=== PATIENT | female | born 1990 | race Caucasian/White ===

== ENCOUNTER 2016-12-12 18:50 | Emergency (ER) | payer SELFPAY ==
[~2016-12-12] VITALS: Ht 154.9 cm; Wt 55.0 kg
[2016-12-12 18:51] VITALS: BP 113/70; PULSE 94; RESP 12; TEMP 98.7; O2SAT 99
--- NOTE | 2016-12-12 20:54 | PD ---
HPI Chief Complaint: Cold / Flu Symptoms Time Seen by Provider: 20:53 Travel History International Travel<30 days: No Contact w/Intl Traveler<30days: No Traveled to known affect area: No History of Present Illness HPI 26-year-old female presents to emergency department for evaluation. Patient states her entire family has had the flu and she does not want to get it. Patient states she feels like she may be starting to get it because she has had a "twinge" in her throat and an occasional cough. Denies any fever or chills. No nausea or vomiting. No diarrhea. She has no other symptoms to report at this time. [facility] Past Medical History Anxiety: Yes Depression: Yes Diminished Hearing: No Gastrointestinal Disorders: Yes GERD: Yes Psychiatric: Yes Immunizations Current: Yes LMP: 4-8-17 : 2 Para: 0 Miscarriage: 1 : 1 Social History Alcohol Use: No Tobacco Use: Yes Substance Use: No (Denies any use; either prescription only or experimentation per patient.) Allergies-Medications (Allergen,Severity, Reaction): Coded Allergies: *MDRO Multi-Drug Resistant Organism (Verified Allergy, Unknown, 12/03/15) MRSA 07/2013 Reported Meds & Prescriptions Reported Meds & Active Scripts Active No Active Prescriptions or Reported Medications Review of Systems Except as stated in HPI: all other systems reviewed are Neg Physical Exam Narrative GENERAL: Well-nourished, well-developed female patient in no acute distress SKIN: Focused skin assessment warm/dry. HEAD: Normocephalic. EYES: No scleral icterus. No injection or drainage. NECK: Supple, trachea midline. No JVD or lymphadenopathy. CARDIOVASCULAR: Regular rate and rhythm without murmurs, gallops, or rubs. RESPIRATORY: Breath sounds equal bilaterally. No accessory muscle use. GASTROINTESTINAL: Abdomen soft, non-tender, nondistended. MUSCULOSKELETAL: No cyanosis, or edema. BACK: Nontender without obvious deformity. No CVA tenderness. Data Data Last Documented VS Vital Signs Date Time Temp Pulse Resp B/P Pulse Ox O2 Delivery O2 Flow Rate FiO2 12/12/16 19:16 16 12/12/16 18:51 98.7 94 113/70 99 Orders Influenzae A/B Antigen (12/12/16 19:17) MDM Medical Decision Making Medical Screen Exam Complete: Yes Emergency Medical Condition: Yes Medical Record Reviewed: Yes Differential Diagnosis Normal examination versus influenza versus common cold versus allergies versus pharyngitis Narrative Course 26-year-old female presents to emergency department for evaluation. Patient states that this is more precautionary because she has been exposed to the flu this week by several family members. She overall appears well. She is afebrile and vital signs are stable patient's influenza screen is obtained. She is discharged home at this time. She agrees to return immediately with any acute worsening of symptoms. Diagnosis Primary Impression: Exposure to influenza Additional Impression: Normal physical exam Referrals: Primary Care Physician Departure Forms: Tests/Procedures, Work Release Enter return to work date: December 16, 2016 Additional Instructions: Frequent handwashing Return to ED with acute worsening of symptoms Med/Other Pt SpecificInfo: No Meds Exist/No RX given Scripts No Active Prescriptions or Reported Meds Disposition: 01 DISCHARGE HOME Condition: Stable Dea Concepcion December 12, 2016 20:54
== END 2016-12-12 21:36 | disposition home or self-care (01) ==
LOC: NEPD 18:50
DX: Z20.828 Contact with and (suspected) exposure to other viral communicable diseases (principal); Z72.0 Tobacco use
CPT/HCPCS: 87804; 99283

== ENCOUNTER 2017-07-28 20:52 | Emergency (ER) | payer SELFPAY ==
[~2017-07-28] VITALS: Ht 154.9 cm; Wt 60.0 kg
[2017-07-28 20:54] VITALS: BP 118/69; PULSE 75; RESP 16; TEMP 98.2; O2SAT 100
--- NOTE | 2017-07-28 21:16 | PD ---
HPI Chief Complaint: Musculoskeletal Complaint Time Seen by Provider: 21:08 Travel History International Travel<30 days: No Contact w/Intl Traveler<30days: No Traveled to known affect area: No History of Present Illness HPI 27-year-old female here for evaluation of left fourth finger injury that occurred 4 days ago. She states that her fianc was cracking her finger knuckles, , flexing the fourth finger at the PIP joint when the injury occurred. She applied her own splint, however she has had persistent pain. She is unable to fully extend the distal finger. She reports that sensation is there, however feels as though her finger is asleep. No other injuries. Pain is moderate, constant, worse with movements and palpation. She is right-hand dominant. PFSH Past Medical History Anxiety: Yes Depression: Yes Diminished Hearing: No Gastrointestinal Disorders: Yes GERD: Yes Psychiatric: Yes Immunizations Current: Yes ?: Unknown LMP: 07/15/17 : 2 Para: 0 Miscarriage: 1 : 1 Social History Alcohol Use: No Tobacco Use: Yes Substance Use: No (Denies any use; either prescription only or experimentation per patient.) Allergies-Medications (Allergen,Severity, Reaction): Coded Allergies: *MDRO Multi-Drug Resistant Organism (Verified Allergy, Unknown, 07/28/17) MRSA 07/2013 Reported Meds & Prescriptions Reported Meds & Active Scripts Active No Active Prescriptions or Reported Medications Review of Systems Except as stated in HPI: all other systems reviewed are Neg Physical Exam Narrative GENERAL: Well-developed, well-nourished, comfortable, no apparent distress. SKIN: Focused skin assessment warm/dry. CARDIOVASCULAR: Regular rate and rhythm. Normal capillary refill in left hand and left fingers. RESPIRATORY: No accessory muscle use. MUSCULOSKELETAL: Left fourth finger with mallet deformity with inability to extend the DIP joint. FDS and FDP appear intact with normal range of motion flexion in the left fourth finger. Normal capillary refill in the left fourth finger. NEUROLOGICAL: Awake and alert. No obvious cranial nerve deficits. Motor grossly within normal limits. Normal speech. PSYCHIATRIC: Appropriate mood and affect; insight and judgment normal. Data Data Last Documented VS Vital Signs Date Time Temp Pulse Resp B/P (MAP) Pulse Ox O2 Delivery O2 Flow Rate FiO2 07/28/17 20:54 98.2 75 16 118/69 (85) 100 Orders Orders Finger ([id number]) (1/2/18 ) Mandatory Outpatient Referral (07/28/17 21:54) MDM Medical Decision Making Medical Screen Exam Complete: Yes Emergency Medical Condition: Yes Differential Diagnosis Mallet finger, extensor tendon injury, fracture, contusion, dislocation Narrative Course Left fourth finger x-ray shows no fracture with soft tissue swelling. The patient has a mallet finger of her left fourth finger. FDS and FDP are intact. She is unable to fully extend the finger at the DIP joint. She was splinted in extension and advised to follow-up with a hand surgeon this week. Diagnosis Primary Impression: Mallet finger of left hand Referrals: González Linn III, MD 3 days Hand Surgeon Charlene Ravi MD 3 days Hand Surgeon Additional Instructions: Follow-up with hand surgeon Dr. Linn or hand surgeon Dr. Ravi or a hand surgeon of your choice this week. Do not remove the splint from your finger. Return to the emergency department for worsening symptoms or any other concerns. Scripts No Active Prescriptions or Reported Meds Disposition: 01 DISCHARGE HOME Condition: Stable Dinesh De Souza MD Jul 28, 2017 21:16
--- NOTE | 2017-07-28 21:38 | RADRPT ---
EXAM DATE/TIME: 07/28/2017 21:24 [facility] COMPARISON: No previous studies available for comparison. INDICATIONS : Left ring finger swelling after jamming it 5 days ago. MEDICAL HISTORY : None. SURGICAL HISTORY : None. ENCOUNTER: Initial ACUITY: 4 - 6 days PAIN SCORE: 4/10 LOCATION: Left 4th digit. FINDINGS: Examination of the fourth digit of the left hand demonstrates no evidence of fracture or dislocation. No radiopaque foreign bodies are seen. Soft tissue swelling. CONCLUSION: Soft tissue swelling without definite fracture. Tomy Ashraf MD on July 28, 2017 at 21:34 Board Certified Radiologist. This report was verified electronically.
== END 2017-07-28 22:00 | disposition home or self-care (01) ==
LOC: PHEFT 20:52
DX: M20.012 Mallet finger of left finger(s) (principal); X50.1XXA Overexertion from prolonged static or awkward postures, initial encounter; Z72.0 Tobacco use
CPT/HCPCS: 73140; 99283

== ENCOUNTER 2017-12-17 18:21 | Emergency (ER) | payer MEDICAID ==
[2017-12-17] MEDS ORDERED: ONDANSETRON ODT 4 MG TAB PO PRN (19:30)
--- NOTE | 2017-12-17 19:38 | PD ---
HPI Chief Complaint n/v Date Seen: December 17, 2017 Time Seen: 19:34 Travel History International Travel<30 Days: No Contact w/Intl Traveler<30Days: No Known Affected Area: No History of Present Illness HPI pt. is a 27 y/o @ 18 2/7 weeks present w/c/o n/v. pt. states over the day has had n/v so much that she is unable to keep food down. pt. denies fever/ chills. nl bm. +FM, no lof/vb. has some low abdominal cramping. Weeks Gestation: 18 Para: 0 : 3 History Past Medical History Medical History: Denies Significant Hx Obstetric History Obstetric History , sab x 2 Family History Family History: Negative Social History Alcohol Use: No Tobacco Use: Yes Substance Abuse: No Allergies-Medications (Allergen,Severity, Reaction): Coded Allergies: *MDRO Multi-Drug Resistant Organism (Verified Allergy, Unknown, 07/28/17) MRSA 07/2013 Home Meds No Active Prescriptions or Reported Meds Review of Systems Except as stated in HPI: all other systems reviewed are Neg Physical Exam Narrative GENERAL: Well-nourished, well-developed patient. SKIN: Warm and dry. HEAD: Normocephalic and atraumatic. EYES: No scleral icterus. No injection or drainage. ENT: No nasal drainage noted. Mucous membranes pink. Airway patent. NECK: Supple, trachea midline. No JVD. CARDIOVASCULAR: Regular rate and rhythm without murmurs, gallops, or rubs. RESPIRATORY: Breath sounds equal bilaterally. No accessory muscle use. BREASTS: Bilateral exam showed no masses , no retractions, no nipple discharge. ABDOMEN/GI: Abdomen soft, non-tender, bowel sounds present, no rebound, no guarding Gravid GENITOURINARY: Uterine Contractions: - FHT's: + FHT EXTREMITIES: No cyanosis or edema. BACK: Nontender without obvious deformity. No CVA tenderness. NEUROLOGICAL: Awake and alert. Motor and sensory grossly within normal limits. Five out of 5 muscle strength in all muscle groups. Normal speech. Data Data Vital Signs Reviewed: Yes Orders Orders Basic Metabolic Panel (Bmp) (12/17/17 19:13) Complete Blood Count With Diff (12/17/17 19:13) Urinalysis - C+S If Indicated (12/17/17 19:13) Ondansetron Odt (Zofran Odt) (12/17/17 19:30) MDM Medical Record Reviewed: Yes Plan pt. w/ gastritis vs hyperemesis. condition d/w pt. pt. to be d/c to home. given precautions for return. all ? answered. f/u as sched. Diagnosis Diagnosis: Primary Impression: Hyperemesis affecting , antepartum Additional Impression: 18 weeks gestation of Disposition: DISCHARGE HOME Scripts No Active Prescriptions or Reported Meds Patient Instructions: General Instructions Additional Instructions: Drink 8-10 large glasses of water per day as tolerated. Return to OB Triage with concerns of decreased movement, vaginal bleeding, or sudden gush of fluids. Departure Forms: Tests/Procedures Matt Boone Jr., MD December 17, 2017 19:38
[2017-12-17 19:42] LABS: AUTOMATED NEUTROPHIL # 6.5 TH/MM3 (1.8-7.7); BASOPHIL % 0.4 % (0.0-2.0); EOSINOPHIL # 0.1 TH/MM3 (0-0.4); HEMATOCRIT 29.6 % (35.0-46.0); HEMOGLOBIN 10.4 GM/DL (11.6-15.3); LYMPH % 21.1 % (9.0-44.0); MEAN CELL VOLUME 88.6 FL (80.0-100.0); MEAN CORPUSCULAR HEMOGLOBIN 31.1 PG (27.0-34.0); MEAN CORPUSCULAR HGB CONC 35.1 % (32.0-36.0); MEAN PLATELET VOLUME 8.7 FL (7.0-11.0); MONO % 7.5 % (0.0-8.0); MONOCYTE # 0.7 TH/MM3 (0-0.9); PLATELET COUNT 222 TH/MM3 (150-450); RED BLOOD COUNT 3.34 MIL/MM3 (4.00-5.30); RED CELL DISTRIBUTION WIDTH 13.8 % (11.6-17.2); WHITE BLOOD COUNT 9.3 TH/MM3 (4.0-11.0)
[2017-12-17 19:46] LABS: BILIRUBIN, URINE NEG (NEG); BLOOD, URINE NEG (NEG); GLUCOSE,URINE NEG (NEG); KETONE, URINE NEG (NEG); MUCUS URINE FEW /lpf (OCC); NITRITE,URINE NEG (NEG); SQUAMOUS EPITHELIAL CELL URINE 4 /hpf (0-5); URINE COLOR LIGHT-YELLOW (YELLW/STRAW); URINE LEUKOCYTE ESTERASE NEG (NEG)
[2017-12-17 19:56] LABS: BICARBONATE 23.8 MEQ/L (21.0-32.0); CREATININE 0.34 MG/DL (0.50-1.00)
== END 2017-12-17 20:11 | disposition home or self-care (01) ==
LOC: HOBED 18:21
DX: O21.0 Mild hyperemesis gravidarum (principal); Z3A.18 18 weeks gestation of pregnancy; Z72.0 Tobacco use
CPT/HCPCS: 80048; 81001; 85025; 99283

== ENCOUNTER 2018-05-21 06:56 | Inpatient (IN) ==
[2018-05-21] MEDS ORDERED: Sodium Chlor 0.9% Inj 500 ML IV.SIG PRN (07:42)
[2018-05-21] MEDS ORDERED: Naloxone Inj 0.4 MG/ML Vial IV.PUSH PRN ×2 (07:42→16:03)
[2018-05-21] MEDS ORDERED: fentaNYL Citrate Inj 100 MCG/2 ML Ampul IV.PUSH PRN ×2 (07:42)
[2018-05-21] MEDS ORDERED: Oxytocin 30 Units/500ml Premix 30 UNITS/500 ML BAG IV.SIG ONE (07:42)
[2018-05-21] MEDS ORDERED: Sod Chloride 0.9% Inj 1,000 ML IV.CONT PRN (07:42)
[2018-05-21] MEDS ORDERED: Citric Acid/Sodium Citrate Liq 30 ML UDC PO SCH (07:45)
--- NOTE | 2018-05-21 07:50 | ED ---
History of Present Illness Primary Care Physician: UNKNOWN Chief Complaint: Contractions, leaking of fluid History of Present Illness: 28-year-old , IUP at 40.3 care complicated by late entry to care, tobacco use now d/c, rubella nonimmune, anxiety/depression, GERD Patient presents complaining of a large gush of clear fluid at 6 AM. She reports that her contractions started very shortly thereafter and have increased in intensity and frequency since that time. She reports that she is now feeling painful contractions every 2-3 minutes. There are no alleviating factors are attempted treatments. The patient reports good movement. She denies any vaginal bleeding. She has no other obstetrical complaints today. 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 This includes certification that hospital inpatient services are reasonable and necessary and in the case of services not specified as inpatient-only under 42 CFR 419.22(n), that they are appropriately provided as inpatient services in accordance to with the 2-midnight benchmark under 43 CFR 412.3(e) Estimated Total Length of Stay (Days): 3 Plans for Post Hospital Care: Home Review of Systems All other systems reviewed negative except as stated in [facility] - History History Provided By: Patient - Medical History Medical History: Medical History (Last Updated 02/15/18 @ 21:20 by Shirley Wilson RN) Anxiety Depression GERD (gastroesophageal reflux disease) - Tobacco History Second Hand Smoke Exposure: No Smoking Status: Former smoker Tobacco Type: Cigarettes - Alcohol History How Often Do You Have a Drink Containing Alcohol: Never - Substance Use History Substance History: No History of Abuse Medications and Allergies Active Medications: Active Medications Citric Acid/Sodium Citrate (Sodium Citrate/Citric Acid Liq) 30 ml PO [employer] [facility] Stop: 05/25/18 07:44 Fentanyl Citrate (Fentanyl Inj) 50 mcg IV.PUSH Q1H PRN PRN Reason: Pain Scale 3 - 5 Fentanyl Citrate (Fentanyl Inj) 100 mcg IV.PUSH Q1H PRN PRN Reason: PAIN SCALE 6 TO 10 Lactated Ringer's (Lr 1000 Ml Inj) 1,000 mls @ 3,000 mls/hr IV.SIG UNSCH PRN PRN Reason: compromise or epidural Lactated Ringer's (Lr 1000 Ml Inj) 1,000 mls @ 125 mls/hr IV.CONT .Q8H DANA Sodium Chloride (Ns Inj) 500 mls @ 1,000 mls/hr IV.SIG UNSCH PRN PRN Reason: SEE LABEL COMMENTS Oxytocin (Pitocin 30 Units/Ns 500 Ml Premix) 30 units in 500 mls @ 999 mls/hr IV.SIG BOLUS ONE Stop: 05/21/18 08:12 Sodium Chloride (Ns Inj) 1,000 mls @ 100 mls/hr IV.CONT .Q10H PRN PRN Reason: SEE LABEL COMMENTS Lidocaine HCl (Xylocaine 1% Inj) 0.1 ml I-DERMAL PRN PRN PRN Reason: For IV start Stop: 05/24/18 07:41 Lidocaine HCl (Xylocaine 1% Inj) 10 ml INFILTRATN PRN PRN PRN Reason: For episiotomy repair Stop: 05/23/18 07:41 Mineral Oil (Muri-Lube Oil) 10 ml TOPICAL PRN PRN PRN Reason: PRN perineal massage Naloxone HCl (Narcan Inj) 0.1 mg IV.PUSH Q2M PRN PRN Reason: for opiate reversal Allergies Allergy/AdvReac Type Severity Reaction Status Date / Time *MDRO Multi-Drug Resistant Allergy Unknown Uncoded 07/28/17 21:17 Organism Home Medications Medication Instructions Recorded Confirmed Type omeprazole 20 mg DAILY 05/15/18 05/15/18 History Exam Narrative: GENERAL: Well-nourished, well-developed patient. SKIN: Warm and dry. No rashes, masses, lesions noted. HEAD: Normocephalic and atraumatic. EYES: No scleral icterus. No injection or drainage. ENT: No nasal drainage noted. Mucous membranes pink. Airway patent. NECK: Supple, trachea midline. No JVD. CARDIOVASCULAR: Regular rate and rhythm without murmurs, gallops, or rubs. RESPIRATORY: Breath sounds equal bilaterally. No accessory muscle use. BREASTS: Deferred ABDOMEN/GI: Abdomen soft, non-tender, bowel sounds present, no rebound, no guarding Gravid GENITOURINARY: Normal EGBUS. No cervical or vaginal masses noted, grossly normal rugate, amnisure positive, SVE 3/50/-2 and mid position. Cephalic as per RN FHT's: heart tones are in the with moderate long-term variability, good accelerations, no decelerations noted. This is a category 1 heart rate tracing and a reactive NST. EXTREMITIES: No cyanosis or edema. BACK: Nontender without obvious deformity. NEUROLOGICAL/psychiatric: Awake and alert x3. Grossly normal memory/affect. Cranial nerves II through XII grossly intact. Grossly normal range of motion. Motor and sensory grossly within normal limits. Five out of 5 muscle strength in all muscle groups. Normal speech. Assessment and Plan - Plan Assessment/plan: 1. IUP at 40.3 2. SROM: Patient presents with ruptured membranes and denise painfully. Will admit to [facility]/Dr. Marie. Discussed in brief the risks of and the risk/indications of delivery. All the patient's questions were answered and labor orders entered. 3. GBS negative 4. well-being: Reassuring testing with reactive NST and category 1 heart rate tracing, continue EFM 5. Anxiety/depression 6. History of GERD 7. History of tobacco use, denies current use 8. Rubella nonimmune 9. Elevated 1 hour with normal 3-hour gtt. 10. Anemia Discharge Plan - Discharge Disposition Patient Disposition: 30 Still Patient - Physicians Team ED Provider: Madison Sequeira Primary Care Provider: UNKNOWN,
[2018-05-21] MEDS ORDERED: fentaNYL 2MCG-Bupiv 0.125% Epi 150 ML EPIDURAL ONE (07:58)
--- NOTE | 2018-05-21 08:04 | P.HPOB ---
History of Present Illness Primary Care Physician: UNKNOWN Chief Complaint: Contractions, leaking of fluid History of Present Illness: Patient Name: Tanesha Hastings Date of : 88 Patient Status: Inpatient Attending Provider: Ben Elkins Date: 05/21/18 07:50 Initialization Date: 05/21/18 07:50 History of Present Illness Primary Care Physician: UNKNOWN Chief Complaint: Contractions, leaking of fluid History of Present Illness: 28-year-old , IUP at 40.3 care complicated by late entry to care, tobacco use now d/c, rubella nonimmune, anxiety/depression, GERD Patient presents complaining of a large gush of clear fluid at 6 AM. She reports that her contractions started very shortly thereafter and have increased in intensity and frequency since that time. She reports that she is now feeling painful contractions every 2-3 minutes. There are no alleviating factors are attempted treatments. The patient reports good movement. She denies any vaginal bleeding. She has no other obstetrical complaints today. 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 This includes certification that hospital inpatient services are reasonable and necessary and in the case of services not specified as inpatient-only under 42 CFR 419.22(n), that they are appropriately provided as inpatient services in accordance to with the 2-midnight benchmark under 43 CFR 412.3(e) Estimated Total Length of Stay (Days): 3 Plans for Post Hospital Care: Home Review of Systems All other systems reviewed negative except as stated in HPI Physical Exam Narrative: GENERAL: Well-nourished, well-developed patient. SKIN: Warm and dry. No rashes, masses, lesions noted. HEAD: Normocephalic and atraumatic. EYES: No scleral icterus. No injection or drainage. ENT: No nasal drainage noted. Mucous membranes pink. Airway patent. NECK: Supple, trachea midline. No JVD. CARDIOVASCULAR: Regular rate and rhythm without murmurs, gallops, or rubs. RESPIRATORY: Breath sounds equal bilaterally. No accessory muscle use. BREASTS: Deferred ABDOMEN/GI: Abdomen soft, non-tender, bowel sounds present, no rebound, no guarding Gravid GENITOURINARY: Normal EGBUS. No cervical or vaginal masses noted, grossly normal rugate, amnisure positive, SVE 3/50/-2 and mid position. Cephalic as per RN FHT's: heart tones are in the with moderate long-term variability, good accelerations, no decelerations noted. This is a category 1 heart rate tracing and a reactive NST. EXTREMITIES: No cyanosis or edema. BACK: Nontender without obvious deformity. NEUROLOGICAL/psychiatric: Awake and alert x3. Grossly normal memory/affect. Cranial nerves II through XII grossly intact. Grossly normal range of motion. Motor and sensory grossly within normal limits. Five out of 5 muscle strength in all muscle groups. Normal speech. Assessment and Plan - Plan Assessment/plan: 1. IUP at 40.3 2. SROM: Patient presents with ruptured membranes and denise painfully. Will admit to [facility]/Dr. Marie. Discussed in brief the risks of and the risk/indications of delivery. All the patient's questions were answered and labor orders entered. 3. GBS negative 4. well-being: Reassuring testing with reactive NST and category 1 heart rate tracing, continue EFM 5. Anxiety/depression 6. History of GERD 7. History of tobacco use, denies current use 8. Rubella nonimmune 9. Elevated 1 hour with normal 3-hour gtt. 10. Anemia Discharge Plan - Discharge Disposition Patient Disposition: 30 Still Patient - Physicians Team ED Provider: Madison Sequeira Primary Care Provider: UNKNOWN, - Inpatient Certification I certify that the inpatient services were ordered in accordance with Medicare regulations governing the order. This includes certification that hospital inpatient services are reasonable and necessary and in the case of services not specified as inpatient-only under 42 CFR 419.22(n), that they are appropriately provided as inpatient services in accordance to with the 2-midnight benchmark under 43 CFR 412.3(e) Estimated Total Length of Stay (Days): 3 Plans for Post Hospital Care: Home [facility] - History History Provided By: Patient - Medical History Medical History: Medical History (Last Updated 02/15/18 @ 21:20 by Shirley Wilson RN) Anxiety Depression GERD (gastroesophageal reflux disease) - Tobacco History Second Hand Smoke Exposure: No Smoking Status: Former smoker Tobacco Type: Cigarettes - Alcohol History How Often Do You Have a Drink Containing Alcohol: Never - Substance Use History Substance History: No History of Abuse Medications and Allergies Active Medications: Active Medications Citric Acid/Sodium Citrate (Sodium Citrate/Citric Acid Liq) 30 ml PO RN [facility] Stop: 05/25/18 07:44 Fentanyl Citrate (Fentanyl Inj) 50 mcg IV.PUSH Q1H PRN PRN Reason: Pain Scale 3 - 5 Fentanyl Citrate (Fentanyl Inj) 100 mcg IV.PUSH Q1H PRN PRN Reason: PAIN SCALE 6 TO 10 Lactated Ringer's (Lr 1000 Ml Inj) 1,000 mls @ 3,000 mls/hr IV.SIG UNSCH PRN PRN Reason: compromise or epidural Lactated Ringer's (Lr 1000 Ml Inj) 1,000 mls @ 125 mls/hr IV.CONT .Q8H DANA Sodium Chloride (Ns Inj) 500 mls @ 1,000 mls/hr IV.SIG UNSCH PRN PRN Reason: SEE LABEL COMMENTS Oxytocin (Pitocin 30 Units/Ns 500 Ml Premix) 30 units in 500 mls @ 999 mls/hr IV.SIG BOLUS ONE Stop: 05/21/18 08:12 Sodium Chloride (Ns Inj) 1,000 mls @ 100 mls/hr IV.CONT .Q10H PRN PRN Reason: SEE LABEL COMMENTS Lidocaine HCl (Xylocaine 1% Inj) 0.1 ml I-DERMAL PRN PRN PRN Reason: For IV start Stop: 05/24/18 07:41 Lidocaine HCl (Xylocaine 1% Inj) 10 ml INFILTRATN PRN PRN PRN Reason: For episiotomy repair Stop: 05/23/18 07:41 Mineral Oil (Muri-Lube Oil) 10 ml TOPICAL PRN PRN PRN Reason: PRN perineal massage Naloxone HCl (Narcan Inj) 0.1 mg IV.PUSH Q2M PRN PRN Reason: for opiate reversal Allergies Allergy/AdvReac Type Severity Reaction Status Date / Time *MDRO Multi-Drug Resistant Allergy Unknown Uncoded 07/28/17 21:17 Organism Home Medications Medication Instructions Recorded Confirmed Type omeprazole 20 mg DAILY 05/15/18 05/15/18 History Exam Vital signs: Intake & Output 05/20/18 05/21/18 05/21/18 18:59 06:59 18:59 Weight 69.853 kg Caprini VTE Risk Assessment Caprini VTE Risk Assessment: No/Low Risk (score <= 1) Caprini Risk Assessment Model: Point Value = 1 Point Value = 2 Point Value = 3 Point Value = 5 Age 41-60 Minor surgery BMI > 25 kg/m2 Swollen legs Varicose veins or History of unexplained or recurrent spontaneous Oral contraceptives or hormone replacement Sepsis (< 1 month) Serious lung disease, including pneumonia (< 1 month) Abnormal pulmonary function Acute myocardial infarction Congestive heart failure (< 1 month) History of inflammatory bowel disease Medical patient at bed rest Age 61-74 Arthroscopic surgery Major open surgery (> 45 min) Laparoscopic surgery (> 45 min) Malignancy Confined to bed (> 72 hours) Immobilizing plaster cast Central venous access Age >= 75 History of VTE Family history of VTE Factor V Leiden Prothrombin [id number] Lupus anticoagulant Anticardiolipin antibodies Elevated serum homocysteine Heparin-induced thrombocytopenia Other congenital or acquired thrombophilia Stroke (< 1 month) Elective arthroplasty Hip, pelvis, or leg fracture Acute spinal cord injury (< 1 month) Prophylaxis Regimen: Total Risk Factor Score Risk Level Prophylaxis Regimen 0-1 Low Early ambulation 2 Moderate Order ONE of the following: *Sequential Compression Device (SCD) *Heparin 5000 units SQ BID 3-4 Higher Order ONE of the following medications: *Heparin 5000 units SQ TID *Enoxaparin/Lovenox 40 mg SQ daily (WT < 150 kg, CrCl > 30 mL/min) *Enoxaparin/Lovenox 30 mg SQ daily (WT < 150 kg, CrCl > 10-29 mL/min) *Enoxaparin/Lovenox 30 mg SQ BID (WT < 150 kg, CrCl > 30 mL/min) AND/OR *Sequential Compression Device (SCD) 5 or more Highest Order ONE of the following medications: *Heparin 5000 units SQ TID (Preferred with Epidurals) *Enoxaparin/Lovenox 40 mg SQ daily (WT < 150 kg, CrCl > 30 mL/min) *Enoxaparin/Lovenox 30 mg SQ daily (WT < 150 kg, CrCl > 10-29 mL/min) *Enoxaparin/Lovenox 30 mg SQ BID (WT < 150 kg, CrCl > 30 mL/min) AND *Sequential Compression Device (SCD)
[2018-05-21] MEDS ORDERED: Lidocaine PF 1.5% Inj 20 ML Ampule ONE (08:15)
[2018-05-21 08:22] LABS: Baso # (Auto) 0.1 th/mm3 (0.0-0.2); Baso % (Auto) 0.7 % (0.0-2.0); Eos # (Auto) 0.1 th/mm3 (0.0-0.4); Eos % (Auto) 0.7 % (0.0-4.0); Lymph # (Auto) 2.6 th/mm3 (1.0-4.8); Lymph % (Auto) 26.3 % (9.0-44.0); Mean Corpuscular HGB Conc 34.2 % (32.0-36.0); Mean Corpuscular Hemoglobin 28.2 pg (27.0-34.0); Mean Corpuscular Volume 82.4 fL (80.0-100.0); Mean Platelet Volume 10.7 fL (7.0-11.0); Mono # (Auto) 1.1 th/mm3 (0.0-0.9); Mono % (Auto) 11.4 % (0.0-8.0); Neut # (Auto) 6.1 th/mm3 (1.8-7.7); Neut % (Auto) 60.9 % (16.0-70.0); Platelet Count 210 th/mm3 (150-450); Red Blood Count 4.24 mil/mm3 (4.00-5.30); Red Cell Distribution Width 14.3 % (11.6-17.2)
[2018-05-21 08:57] LABS: Bacteria,Urine Rare /hpf; Bilirubin,Urine Negative (Negative); Clarity,Urine Cloudy (Clear); Color,Urine Yellow (Yellw/Straw); Glucose,Urine (UA) Negative (Negative); Leukocyte Esterase,Urine Negative (Negative); Mucus,Urine Few /lpf (Occasional); Nitrite,Urine Negative (Negative); Squamous Epithelial Cell,Urine 11 /hpf (0-5); Urobilinogen,Urine 4 or Greater mg/dL (Less than 2)
[2018-05-21 08:58] LABS: Amphetamine Urine With Conf Neg (Neg); Benzodiazepine Urine With Conf Neg (Neg)
[2018-05-21] MEDS ORDERED: fentaNYL 2MCG-Bupiv 0.125% Epi 150 ML EPIDURAL PRN (09:02)
[2018-05-21] MEDS ORDERED: fentaNYL Citrate Inj 100 MCG/2 ML Ampul EPIDURAL ONE (09:02)
[2018-05-21] MEDS ORDERED: Lidocaine PF 1% Inj 30 ML Vial ONE (14:49)
[2018-05-21] MEDS ORDERED: Oxytocin 30 Units/500ml Premix 30 UNITS/500 ML BAG IV.CONT PRN (16:03)
[2018-05-21] MEDS ORDERED: Zolpidem Tartrate 5 MG Tablet PO PRN (16:03)
[2018-05-21] MEDS ORDERED: Benzocaine 20% Top Spray 60 ML Can TOPICAL PRN (16:03)
[2018-05-21] MEDS ORDERED: Witch Hazel 50%/Glyderin 12.5% 40 Pad Jar RECTAL PRN (16:03)
[2018-05-21] MEDS ORDERED: Oxytocin 30 Units/500ml Premix 30 UNITS/500 ML BAG ONE (16:08)
--- NOTE | 2018-05-21 16:34 | P.OBDELI ---
Weeks Gestation: 40 Patient Started Active Labor: Yes Medical Induction of Labor: No Artificial Rupture of Membrane: No Anesthesia: Epidural Episiotomy: midline Vaginal Delivery: Normal Presentation: Occiput anterior Nuchal Cord: x1 Delayed Cord Clamping (45 sec): Yes (30 sec) Placenta: Spontaneous delivery, Intact, Uterus explored + Laceration: 3 deg Estimated blood loss (mL): 1,000 Infant: Female Infant Female A Infant Delivery Date: 05/21/18 score (1 min): 6 score (5 min): 8 Additional Information: Decelerations with pushing efforts noted. First degree episiotomy performed after injection with lidocaine. Maternal pushing efforts resulted in vaginal delivery. After delivery of head, nuchal cord noted, and reduced. Rest of body readily followed, and was placed on her abdomen. Nursery team at bedside. cord clamped at 30 sec for further evaluation to be performed. Baby required cpap and O2, and was transfered to the NICU. Rectal exam was performed to confirm rectal mucosa was intact. Rectal exam also performed after repair and good rectal tone noted. Anal sphincter was brought back together with chromic in an end-to - end fashion. 3-0 chromic was used to reapproximate tissue overlying rectum and approximate the sphincter capsule. the remaining second degree laceration was repaired in standard fashion with 2-0 vicryl in multiple layers. The skin was reapproximated with 4-0 chromic in a subcuticular fashion. Excellent reapproximation and hemostasis noted. She continued to have slow amount of bleeding during repair; vaginal exam performed and large clot noted in cervix. Uterus was explored and approximately 500ml of clot removed. Vigorous uterine massage performed and bladder drained (~500ml of blood noted). Will give unasy and Methergine x 3 doses over the next 24 hours.
[2018-05-21] MEDS ORDERED: Ampicillin/Sulbactam Inj 3 GM in Sodium Chloride 0.9% Inj 100 ML IV.SIG ONE (17:00)
[2018-05-21] MEDS ORDERED: Measles/Mumps/Rubella Vaccine Inj 0.5 ML Vial SQ ONE (18:00)
[2018-05-21] MEDS ORDERED: Diphtheria/Tetanus/Pertussis Vaccine Inj 0.5 ML Syringe IM ONE (18:00)
[2018-05-21] MEDS: Senna/Docusate Sodium 8.6/50 MG Tablet PO SCH (22:21)
[2018-05-22] MEDS: Senna/Docusate Sodium 8.6/50 MG Tablet PO SCH ×2 (10:31→20:33)
[2018-05-22] MEDS: Acetaminophen 325 MG Tablet PO PRN (22:08)
[2018-05-23] MEDS: Acetaminophen 325 MG Tablet PO PRN ×2 (04:18→12:58)
[2018-05-23 08:09] VITALS: BP 117/76; PULSE 68; RESP 16; TEMP 98
[2018-05-23] MEDS: Senna/Docusate Sodium 8.6/50 MG Tablet PO SCH (09:46)
== END 2018-05-23 13:40 | disposition home or self-care (01) ==
LOC: HOBED 06:56 → H2E 07:30 → H1EA 18:23
PROVIDERS: ADMIT Obstetrics & Gynecology; ATTEND Obstetrics & Gynecology